=== PATIENT | female | born 1970 | race African-American/Black ===

== ENCOUNTER 2020-01-04 18:21 | Emergency (ER) | payer OTHER, SELFPAY ==
[2020-01-04 18:27] VITALS: BP 116/96; PULSE 87; RESP 17; TEMP 37.2; O2SAT 98
--- NOTE | 2020-01-04 18:30 | ED.GENADULT ---
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 She tired hydrating herself and she was doused in cold water. EMS started IV fluids. On arrival to the ED she reports feeling better. She had similar symptoms yesterday and actually vomited a few times. No pain. Related Data Allergies Allergy/AdvReac Type Severity Reaction Status Date / Time No Known Allergies Allergy Verified 01/04/20 18:38 Review of Systems Review of Systems: All systems reviewed & are unremarkable except as noted in HPI and below Constitutional: Constitutional: Denies chills and Denies fever(s) Cardiovascular: Cardiovascular: Denies chest pain Respiratory: Respiratory: Denies dyspnea Gastrointestinal: Gastrointestinal: Denies abdominal pain, Reports nausea and Reports vomiting Genitourinary: Genitourinary: Denies dysuria Musculoskeletal: Musculoskeletal: Denies back pain Neurologic: Reports dizziness and Denies syncope [facility] Social History Social History Gender identity (if verbalized by the patient): Female Exam Const: General: healthy appearing, no acute distress and alert Orientation/consciousness: patient oriented x3 HENMT: Head: normal to inspection Neck: Neck: normal visual inspection and no lymphadenopathy Chest: Chest palpation & inspection: no tenderness Resp: Effort & Inspection: normal respiratory effort Auscultation: clear to auscultation bilaterally, no rales, no rhonchi and no wheezes Cardio: Jugular venous distension: no JVD Rate: regular rate Rhythm: regular rhythm Heart sounds: no murmurs GI: Inspection: non-distended GI Palp: Yes Soft to palpation and No Tenderness to palpation present (GI) Skin: General skin exam: normal color Neuro: General: patient oriented x3 and moves all extremities Speech: normal speech Extrem: General: no edema Psych: Appearance: well kempt Affect: normal affect Course Vital Signs Vital signs: Vital Signs Temperature 37.2 C 01/04/20 18:27 Pulse Rate 87 01/04/20 18:27 Respiratory Rate 17 01/04/20 18:27 Blood Pressure 116/96 H 01/04/20 18:27 Pulse Oximetry 98 01/04/20 18:27 Temperature 37.2 C 01/04/20 18:27 Pulse Rate 102 H 01/04/20 19:24 Respiratory Rate 17 01/04/20 19:24 Blood Pressure 115/76 01/04/20 19:24 Pulse Oximetry 99 01/04/20 19:24 Medical Decision Making Medical Records Medical records reviewed: Yes I reviewed the patient's medical records. Vital Signs Vital Signs: Vital Signs Temperature 37.2 C 01/04/20 18:27 Pulse Rate 87 01/04/20 18:27 Respiratory Rate 17 01/04/20 18:27 Blood Pressure 116/96 H 01/04/20 18:27 Pulse Oximetry 98 01/04/20 18:27 Temperature 37.2 C 01/04/20 18:27 Pulse Rate 102 H 01/04/20 19:24 Respiratory Rate 17 01/04/20 19:24 Blood Pressure 115/76 01/04/20 19:24 Pulse Oximetry 99 01/04/20 19:24 Lab Data Lab results reviewed: Yes I reviewed the patient's lab results. Labs: Lab Results 01/04/20 Range/Units 18:38 POC Capillary Glucose 152 H (65-105) mg/dl Discharge Plan Discharge Clinical Impression: Heat exhaustion Qualifiers: Encounter type: initial encounter Qualified Code(s): T67.5XXA - Heat exhaustion, unspecified, initial encounter Patient Disposition: Home, Self-Care Condition: Stable Instructions: Heat Exhaustion (ED) Follow-up/Referrals: PHYSICIAN,LOAD DROPPER [Primary Care Provider] - Discharge Date/Time: 01/04/20 20:35
[2020-01-04] MEDS: SODIUM CHLORIDE 0.9% IV 1,000 ML 999 ML IV CONT (18:37)
[2020-01-04 18:42] LABS: Glucose Point of Care 152 (65-105)
[2020-01-04 19:24] VITALS: BP 115/76; PULSE 102; RESP 17; O2SAT 99
== END 2020-01-04 20:35 | disposition home or self-care (01) ==
PROVIDERS: Emergency Provider Emergency Medicine
DX: T67.5XXA Heat exhaustion, unspecified, initial encounter (principal)
CPT/HCPCS: 82948; 99283; J7030